=== PATIENT | female | born 1990 | race Two or more races ===

== ENCOUNTER 2020-02-06 11:42 | Emergency (ER) | payer SELFPAY ==
--- NOTE | 2020-02-06 11:48 | ER Document Report ---
ED Medical Screen (RME) - General Chief Complaint: S/S of Possible Stroke Stated Complaint: POSSIBLE STROKE Time Seen by Provider: 02/06/20 11:43 Primary Care Provider: ANIBAL PARK MD [ACTIVE STAFF] - Follow up as needed Mode of Arrival: Wheelchair Information source: Patient Notes: 29-year-old female presents to the emergency department with left-sided weakness and numbness which started approximately 30 minutes ago. She reports she had the same symptoms yesterday for about 45 minutes. She reports at that time she was unable to talk. She reports EMS was contacted yesterday they evaluated her and she did not come to the hospital. Today she reports the same numbness and weakness on the left side but she is able to talk. She reports she had a headac he yesterday after the event but none today. Denies trauma. Reports she kind of fell out of a chair yesterday but did not hit her head. Patient answering all questions appropriate. Speech is clear. Left side weaker than right side. Difficulty putting left [id number]. Denies smoke drink or drugs. Does not think she is . I have greeted and performed a rapid initial assessment of this patient. A comprehensive ED assessment and evaluation of the patient, analysis of test re sults and completion of the medical decision making process will be conducted by additional ED providers. - Related Data Allergies/Adverse Reactions: No Known Allergies Allergy (Unverified 04/05/14 21:44) Physical Exam - Vital signs Vitals: Resp Pulse Ox 22 H 100 02/06/20 12:04 02/06/20 12:04 Course - Vital Signs Vital signs: Temp Pulse Resp BP Pulse Ox 98.0 F 122 H 20 137/73 H 100 02/06/20 12:20 02/06/20 12:28 02/06/20 13:01 02/06/20 13:00 02/06/20 13:01 - Laboratory Result Diagrams: 02/06/20 12:08 02/06/20 12:08 Laboratory results interpreted by me: 02/06/20 02/06/20 02/06/20 12:08 12:08 12:20 RDW 14.2 H Creatinine 0.32 L Total Bilirubin 1.8 H Alkaline Phosphatase 132 H TSH < 0.01 L Free T4 4.51 H Free T3 pg/mL 16.40 H Doctor's Discharge - Discharge Referrals: ANIBAL PARK MD [ACTIVE STAFF] - Follow up as needed
--- NOTE | 2020-02-06 12:17 | RADIOLOGY REPORT (SQ) ---
EXAM DESCRIPTION: CHEST SINGLE VIEW IMAGES COMPLETED DATE/TIME: 02/06/2020 11:59 am REASON FOR STUDY: numbness weakness left side, stroke alert COMPARISON: None. EXAM PARAMETERS: NUMBER OF VIEWS: One view. TECHNIQUE: Single frontal radiographic view of the chest acquired. RADIATION DOSE: NA LIMITATIONS: None. FINDINGS: LUNGS AND PLEURA: No opacities, masses or pneumothorax. No pleural effusion. MEDIASTINUM AND HILAR STRUCTURES: No masses. Contour normal. HEART AND VASCULAR STRUCTURES: Heart normal in size. Normal vasculature. BONES: No acute findings. HARDWARE: None in the chest. OTHER: No other significant finding. IMPRESSION: NO ACUTE RADIOGRAPHIC FINDING IN THE CHEST. TECHNICAL DOCUMENTATION: JOB ID: [id number] 2010 [employer]- All Rights Reserved Reading location - IP/workstation name: [email or web address]
--- NOTE | 2020-02-06 12:18 | RADIOLOGY REPORT (SQ) ---
EXAM DESCRIPTION: CT HEAD WITHOUT IMAGES COMPLETED DATE/TIME: 02/06/2020 12:00 pm REASON FOR STUDY: numbness weakness left side, stroke alert COMPARISON: None. TECHNIQUE: Axial images acquired through the brain without intravenous contrast. Images reviewed wi th bone, brain and subdural windows. Images stored on PACS. All CT scanners at this facility use dose modulation, iterative reconstruction, and/or weight based d osing when appropriate to reduce radiation dose to as low as reasonably achievable (ALARA). [facility]: Dose Right [facility]: CareDose [facility]: Dose Right [facility]: Teradose 4D [facility]: Smart [employer] RADIATION DOSE: CT Rad equipment meets quality standard of care and radiation dose reduction techniq ues were employed. CTDIvol: 53.2 mGy. DLP: 937 mGy-cm. mGy. LIMITATIONS: None. FINDINGS: VENTRICLES: Normal size and contour. CEREBRUM: No masses. No hemorrhage. No midline shift. No evidence for acute infarction. Normal gra y/white matter differentiation. No areas of low density in the white matter. CEREBELLUM: No masses. No hemorrhage. No alteration of density. No evidence for acute infarction. EXTRAAXIAL SPACES: No fluid collections. No masses. ORBITS AND GLOBE: No intra- or extraconal masses. Normal contour of globe without masses. CALVARIUM: No fracture. PARANASAL SINUSES: No fluid or mucosal thickening. SOFT TISSUES: No mass or hematoma. OTHER: No other significant finding. IMPRESSION: NORMAL BRAIN CT WITHOUT CONTRAST. EVIDENCE OF ACUTE STROKE: NO. COMMENT: The findings were sent to the Radiology Results Communication Center at 12:11 on 02/06/2020 to be communicated to a licensed caregiver. Quality ID # [id number]: Final reports with documentation of one or more dose reduction techniques (e.g., Au tomated exposure control, adjustment of the mA and/or kV according to patient size, use of iterative reconstruction technique) TECHNICAL DOCUMENTATION: JOB ID: [id number] 2010 [employer]- All Rights Reserved Reading location - IP/workstation name: [email or web address]
[2020-02-06 12:24] LABS: ABSOLUTE EOSINOPHILS # (AUTO) 0.1 10^3/uL (0.0-0.6); ABSOLUTE LYMPHOCYTES (AUTO) 2.5 10^3/uL (0.5-4.7); ABSOLUTE MONOCYTES (AUTO) 0.7 10^3/uL (0.1-1.4); ABSOLUTE NEUT (AUTO) 3.6 10^3/uL (1.7-8.2); BASOPHILS % (AUTO) 0.3 % (0-2); EOSINOPHILS % (AUTO) 1.5 % (0-6); HEMATOCRIT 41.6 % (36.0-47.0); HEMOGLOBIN 14.7 g/dL (12.0-15.5); LYMPHOCYTES % (AUTO) 36.6 % (13-45); MEAN CORPUSCULAR HGB CONC 35.4 g/dL (32.0-36.0); MEAN CORPUSCULAR VOLUME 82 fl (80-97); MONOCYTES % (AUTO) 9.9 % (3-13); PLATELET COUNT 256 10^3/uL (150-450); RED BLOOD COUNT 5.08 10^6/uL (3.72-5.28); RED CELL DISTRIBUTION WIDTH 14.2 % (11.5-14.0); SEGMENTED NEUTROPHILS % (AUTO) 51.7 % (42-78); TOTAL CELLS COUNTED % (AUTO) 100 %; WHITE BLOOD COUNT 6.9 10^3/uL (4.0-10.5)
[2020-02-06 12:30] LABS: INTERNATIONAL RATION (INR) 1.04; PROTHROMBIN TIME 13.6 SEC (11.4-15.4)
[2020-02-06 12:31] LABS: PARTIAL THROMBOPLASTIN TIME 30.1 SEC (23.5-35.8)
[2020-02-06] MEDS ORDERED: NORMAL SALINE 1000 ML 1,000 ML IV ONE (12:43)
[2020-02-06 12:44] LABS: ALBUMIN 4.6 g/dL (3.5-5.0); ALKALINE PHOSPHATASE 132 U/L (38-126); ANION GAP 9 (5-19); ASPARTATE AMINO TRANSFERASE 19 U/L (14-36); BILIRUBIN,TOTAL 1.8 mg/dL (0.2-1.3); BLOOD UREA NITROGEN 9 mg/dL (7-20); CALCIUM 9.8 mg/dL (8.4-10.2); CARBON DIOXIDE 26 mmol/L (22-30); CHLORIDE 103 mmol/L (98-107); CREATINE KINASE 30 U/L (30-135); GLUCOSE 103 mg/dL (75-110); POTASSIUM 4.1 mmol/L (3.6-5.0); TOTAL PROTEIN 8.1 g/dL (6.3-8.2)
[2020-02-06 12:56] LABS: CREATINE KINASE MB < 0.22 ng/mL (<4.55); TROPONIN I < 0.012 ng/mL
[2020-02-06] MEDS ORDERED: PROPRANOLOL HCL INJ/PF 1 MG/1 ML SDV IV STA (12:57)
--- NOTE | 2020-02-06 13:01 | ER Document Report ---
ED General - General Chief Complaint: Weakness Stated Complaint: POSSIBLE STROKE Time Seen by Provider: 02/06/20 11:43 Primary Care Provider: ANIBAL PARK MD [ACTIVE STAFF] - Follow up as needed Mode of Arrival: Wheelchair Information source: Patient TRAVEL OUTSIDE OF THE [place] IN LAST 30 DAYS: No - HPI Onset: Yesterday Onset/Duration: Sudden Quality of pain: No pain Severity: Moderate Pain Level: Denies Associated symptoms: Other - numbness and tingling all over but worst on left Exacerbated by: Other - Anxiety Relieved by: Denies Similar symptoms previously: No Recently seen / treated by doctor: No Notes: 29 year old female with a history of Hyperthyroidism no longer on medications (has been off medications for 4 years) here in the ER for 2 episodes of numbness and tingling all over (but worst on left) as well as feeling rather anxious. The patient says this happened yesterday and EMS was called but she was not brought to the ER. The patient says yesterdays symptoms lasted about 30 min. The symptoms happened again today and persisted so she came to the ER. The patient denies chest pain, shortness of breath, trouble breathing, palpitations, eye bulging, sweating, but she does feel anxious. - Related Data Allergies/Adverse Reactions: No Known Allergies Allergy (Unverified 04/05/14 21:44) Past Medical History - General Information source: Patient - Social History Smoking Status: Never Smoker Chew tobacco use (# tins/day): No Frequency of alcohol use: None Drug Abuse: None Lives with: Family Family History: Reviewed & Not Pertinent Patient has suicidal ideation: No Patient has homicidal ideation: No Endocrine Medical History: Reports: Hx Hyperthyroidism Review of Systems - Review of Systems Constitutional: No symptoms reported EENT: No symptoms reported Cardiovascular: No symptoms reported Respiratory: No symptoms reported Gastrointestinal: No symptoms reported Genitourinary: No symptoms reported Female Genitourinary: No symptoms reported Musculoskeletal: No symptoms reported Skin: No symptoms reported Hematologic/Lymphatic: No symptoms reported Neurological/Psychological: Anxiety, Numbness, Tingling Physical Exam - Vital signs Vitals: Resp Pulse Ox 22 H 100 02/06/20 12:04 02/06/20 12:04 - Notes Notes: GENERAL: Anxious, well-appearing, well-nourished and in no acute distress. HEAD: Atraumatic, normocephalic. EYES: Pupils equal round and reactive to light, extraocular movements intact, sclera anicteric, conjunctiva are normal. ENT: External ears normal, nares patent, oropharynx clear without exudates. Moist mucous membranes. NECK: Normal range of motion, supple without lymphadenopathy or JVD. LUNGS: Breath sounds clear to auscultation bilaterally and equal. No wheezes rales or rhonchi. HEART: Tachycardic, normal rhythm without murmurs, rubs or gallops. ABDOMEN: Soft, nontender, normoactive bowel sounds. No guarding, no rebound. N o masses appreciated. EXTREMITIES: Normal range of motion, no pitting or edema. No clubbing or cyan osis. NEUROLOGICAL: Cranial nerves II through XII grossly intact. Normal speech, normal gait. PSYCH: Anxious, normal mood, normal affect. SKIN: Warm, Dry, normal turgor, no rashes or lesions noted. Course - Re-evaluation Re-evalutation: 02/06/20 17:33 The patient arrived with numbness and tingling and she was rather tachycardic. Patient has a history of hyperthyroidism (has been off meds for 4 years) and she is hyperthyroid / mildly thyroid toxic today. I called [facility] Endocrinology for a consult and they recommended starting the patient on Methimazole 20mg Daily and Atenolol 25mg BID and outpatient follow up. The Endocrinoloigst at [facility] does not think the patient needs admission given she is not in Thyroid Storm. The patient was started on these meds in the ER and her symptoms and heart rate improve. Patient given a month supply of of medications and told she needs to follow up with a PCP and Rn Cvor as soon as possible. - Vital Signs Vital signs: Temp Pulse Resp BP Pulse Ox 98.0 F 122 H 20 119/74 100 02/06/20 12:20 02/06/20 12:28 02/06/20 16:30 02/06/20 16:30 02/06/20 16:30 - Laboratory Result Diagrams: 02/06/20 12:08 02/06/20 12:08 Laboratory results interpreted by me: 02/06/20 02/06/20 02/06/20 12:08 12:08 12:20 RDW 14.2 H Creatinine 0.32 L Total Bilirubin 1.8 H Alkaline Phosphatase 132 H TSH < 0.01 L Free T4 4.51 H Free T3 pg/mL 16.40 H - Diagnostic Test Radiology reviewed: Image reviewed, Reports reviewed - EKG Interpretation by Me EKG shows normal: Sinus rhythm, [place], Intervals, QRS Complexes Rate: Tachycardia Rhythm: NSR Additional EKG results interpreted by me: 02/06/20 13:[address] segments which seems rate related Discharge - Discharge Clinical Impression: Hyperthyroidism Condition: Stable Disposition: HOME, SELF-CARE Instructions: Hyperthyroidism ([facility]) Additional Instructions: Your thyroid levels are high (Free T3 = 16.4, Free T4 = 4.51, TSH <0.01) Start taking Methimazole 20mg daily and start taking Atenolol 25mg twice a day. Follow up with an Rn Cvor as soon as possible. You should have your Thyroid levels (Free T3 and Free T4) rechecked in 1-2 weeks after starting treatment. Prescriptions: Methimazole 20 mg PO DAILY 30 Days #30 tablet Atenolol [Tenormin] 25 mg PO BID 30 Days #60 tablet Referrals: ANIBAL PARK MD [ACTIVE STAFF] - Follow up as needed
[2020-02-06 13:41] LABS: FREE T4 (FREE THYROXINE) 4.51 ng/dL (0.78-2.19)
[2020-02-06 13:58] LABS: THYROID STIMULATING HORMONE < 0.01 uIU/mL (0.47-4.68)
[2020-02-06] MEDS ORDERED: ATENOLOL 50 MG TABLET PO ONE (15:12)
[2020-02-06 15:44] LABS: APPEARANCE,URINE CLEAR; BILIRUBIN,URINE NEGATIVE (NEGATIVE); COLOR,URINE STRAW; GLUCOSE, URINE NEGATIVE (NEGATIVE); KETONES,URINE NEGATIVE (NEGATIVE); LEUKOCYTE ESTERASE,URINE NEGATIVE (NEGATIVE); NITRITE,URINE NEGATIVE (NEGATIVE); PROTEIN,URINE NEGATIVE (NEGATIVE); URINE SPECIFIC GRAVITY 1.004; UROBILINOGEN,URINE NEGATIVE mg/dL (<2.0)
[2020-02-06] MEDS ORDERED: METHIMAZOLE 5 MG TABLET PO ONE (16:35)
[2020-02-06 16:46] VITALS: BP 119/74
--- NOTE | 2020-02-06 21:39 | EKG REPORT ---
SEVERITY:- ABNORMAL ECG - SINUS TACHYCARDIA ST ELEVATION SUGGESTS PERICARDITIS, CLINICAL CORRELATION NEEDED : Confirmed by: Victor Hugo Chen MD 06-Feb-2020 21:38:54
== END 2020-02-06 17:15 | disposition home or self-care (01) ==
LOC: ER 11:42
DX: E05.90 Thyrotoxicosis, unspecified without thyrotoxic crisis or storm (principal); R20.0 Anesthesia of skin; R20.2 Paresthesia of skin; F41.9 Anxiety disorder, unspecified; R00.0 Tachycardia, unspecified
CPT/HCPCS: 93005; 99285; 96361; 96374; 36415; 84439; 82553; 82550; 83735; 84443; 84703; 85025; 85652; 85610; 85730; 81025; 80053; 81001; 84484; 84481; 71045; 70450; 93010; J1800; J7030